=== PATIENT | male | born 1965 | race Caucasian/White ===

== ENCOUNTER 2016-09-04 18:42 | Emergency (ER) | payer MEDICAID ==
[~2016-09-04] VITALS: Ht 165.1 cm; Wt 72.8 kg
[2016-09-04 18:44] VITALS: BP 131/81
== END 2016-09-04 20:05 | disposition home or self-care (01) ==
LOC: ED 19:40
DX: M77.9 Enthesopathy, unspecified (principal); G89.11 Acute pain due to trauma; M79.601 Pain in right arm

== ENCOUNTER 2016-09-09 20:06 | Emergency (ER) | payer MEDICAID ==
[~2016-09-09] VITALS: Ht 165.1 cm; Wt 72.6 kg
[2016-09-09 20:06] VITALS: BP 126/78
== END 2016-09-09 20:37 | disposition home or self-care (01) ==
LOC: ED 20:35
DX: K08.89 Other specified disorders of teeth and supporting structures (principal); F17.210 Nicotine dependence, cigarettes, uncomplicated
CPT/HCPCS: 99283

== ENCOUNTER 2016-11-14 09:15 | Emergency (ER) | payer MEDICAID ==
[~2016-11-14] VITALS: Ht 165.1 cm; Wt 71.2 kg
[2016-11-14 10:42] LABS: HEMATOCRIT 45.5 % (39.2-51.8); HEMOGLOBIN 14.7 g/dL (13.7-18.0)
[2016-11-14 10:56] LABS: BLOOD UREA NITROGEN 18 mg/dL (7-18)
[2016-11-14 11:00] LABS: ASPARTATE AMINO TRANSFERASE 63 U/L (15-37)
[2016-11-14] MEDS ORDERED: DIAZEPAM 5 MG TABLET PO ONE (11:00)
[2016-11-14] MEDS ORDERED: KETOROLAC 30 MG/1 ML IM ONE (11:00)
[2016-11-14] MEDS ORDERED: DIAZEPAM 5 MG TABLET ONE (11:12)
[2016-11-14] MEDS ORDERED: KETOROLAC 30 MG/1 ML ONE (11:12)
[2016-11-14 11:49] VITALS: BP 111/67
== END 2016-11-14 11:51 | disposition home or self-care (01) ==
LOC: ED 11:43
DX: S39.012A Strain of muscle, fascia and tendon of lower back, initial encounter (principal); F17.210 Nicotine dependence, cigarettes, uncomplicated; V19.9XXA Pedal cyclist (driver) (passenger) injured in unspecified traffic accident, initial encounter; Y93.89 Activity, other specified; Y92.89 Other specified places as the place of occurrence of the external cause; Y99.8 Other external cause status
CPT/HCPCS: 36415; 72110; 80053; 85025; 96372; 99285; J1885

== ENCOUNTER 2017-03-16 16:03 | Emergency (ER) | payer MEDICAID | END 2017-03-16 21:27 | disposition left against medical advice (07) | LOC: ED 21:12 | DX: K08.89 Other specified disorders of teeth and supporting structures (principal); Z53.21 Procedure and treatment not carried out due to patient leaving prior to being seen by health care provider ==

== ENCOUNTER 2017-03-18 14:54 | Emergency (ER) | payer MEDICAID ==
[~2017-03-18] VITALS: Ht 165.1 cm; Wt 77.1 kg
[2017-03-18 15:34] VITALS: BP 160/93
== END 2017-03-18 17:24 | disposition home or self-care (01) ==
LOC: ED 16:46
DX: K02.9 Dental caries, unspecified (principal)
CPT/HCPCS: 99283

== ENCOUNTER 2017-03-27 21:09 | Emergency (ER) | payer MEDICAID ==
[~2017-03-27] VITALS: Ht 165.1 cm; Wt 76.2 kg
[2017-03-27 21:20] VITALS: BP 145/84
[2017-03-27] MEDS ORDERED: KETOROLAC 30 MG/1 ML IM ONE (22:30)
[2017-03-27] MEDS ORDERED: HYDROcodone/APAP 5/325 TABLET PO ONE (22:30)
[2017-03-27] MEDS ORDERED: METHOCARBAMOL 750 MG TABLET PO ONE (22:30)
[2017-03-27] MEDS ORDERED: METHOCARBAMOL 750 MG TABLET ONE (22:31)
[2017-03-27] MEDS ORDERED: HYDROcodone/APAP 5/325 TABLET ONE (22:31)
[2017-03-27] MEDS ORDERED: KETOROLAC 30 MG/1 ML ONE (22:32)
== END 2017-03-27 23:03 | disposition home or self-care (01) ==
LOC: ED 22:54
DX: S46.912A Strain of unspecified muscle, fascia and tendon at shoulder and upper arm level, left arm, initial encounter (principal); S56.912A Strain of unspecified muscles, fascia and tendons at forearm level, left arm, initial encounter; Y93.B2 Activity, push-ups, pull-ups, sit-ups; Y93.89 Activity, other specified; Y92.89 Other specified places as the place of occurrence of the external cause; Y99.8 Other external cause status
CPT/HCPCS: 96372; 99283; J1885

== ENCOUNTER 2017-06-22 18:02 | Emergency (ER) | payer MEDICAID ==
[~2017-06-22] VITALS: Ht 167.6 cm; Wt 80.0 kg
[2017-06-22 18:09] VITALS: BP 141/81
== END 2017-06-22 19:30 | disposition home or self-care (01) ==
LOC: ED 19:25
DX: J20.8 Acute bronchitis due to other specified organisms (principal); J04.0 Acute laryngitis; F17.200 Nicotine dependence, unspecified, uncomplicated
CPT/HCPCS: 70360; 71046; 99284; J7512

== ENCOUNTER 2017-10-12 16:30 | Emergency (ER) | payer MEDICAID ==
[~2017-10-12] VITALS: Ht 165.1 cm; Wt 75.1 kg
[2017-10-12 17:18] VITALS: BP 119/74
[2017-10-12] MEDS ORDERED: IBUPROFEN 800 MG TABLET ONE (17:55)
[2017-10-12] MEDS ORDERED: IBUPROFEN 200 MG TABLET PO ONE (18:00)
== END 2017-10-12 18:18 | disposition home or self-care (01) ==
LOC: ED 17:49
DX: S93.521A Sprain of metatarsophalangeal joint of right great toe, initial encounter (principal); X58.XXXA Exposure to other specified factors, initial encounter; Y93.89 Activity, other specified; Y99.8 Other external cause status; Y92.89 Other specified places as the place of occurrence of the external cause
CPT/HCPCS: 99284

== ENCOUNTER 2017-10-19 12:01 | Emergency (ER) | payer MEDICAID ==
[~2017-10-19] VITALS: Ht 165.1 cm; Wt 77.0 kg
[2017-10-19 12:11] VITALS: BP 129/84
== END 2017-10-19 12:54 | disposition home or self-care (01) ==
LOC: ED 12:48
DX: Z00.00 Encounter for general adult medical examination without abnormal findings (principal); F17.200 Nicotine dependence, unspecified, uncomplicated
CPT/HCPCS: 99281